=== PATIENT | male | born 1985 | race Hispanic/Latino ===

== ENCOUNTER 2017-06-13 14:51 | Emergency (ER) | payer SELFPAY ==
[2017-06-13] MEDS ORDERED: Lidocaine 1% 20 ML MDV ONE (15:45)
[2017-06-13] MEDS ORDERED: traMADol HCl 50 MG TAB ONE (15:45)
[2017-06-13] MEDS ORDERED: cefTRIAXone\\ROCEPHIN 1 GM VIAL ONE (15:45)
== END 2017-06-13 16:20 | disposition home or self-care (01) ==
LOC: MADERS 14:51
DX: H66.93 Otitis media, unspecified, bilateral (principal); J20.9 Acute bronchitis, unspecified
CPT/HCPCS: 96372; J0696; J2001